=== PATIENT | male | born 1995 | race Caucasian/White ===

== ENCOUNTER 2023-04-16 08:56 | Inpatient (IN) | payer OTHER ==
[~2023-04-16] VITALS: Ht 170.1 cm; Wt 76.7 kg
[2023-04-16 09:10] VITALS: BP 140/82
[2023-04-16 09:45] LABS: BILIRUBIN Negative (Negative); BLOOD Negative (Negative); CLARITY Clear (Clear); COLOR Dark Yellow (Yellow); GLUCOSE Negative (Negative); KETONE Trace (Negative); LEUKO ESTERASE Trace (Negative); NITRITE Negative (Negative)
[2023-04-16 09:53] LABS: URINE AMPHETAMINES Negative (1000ng/ml); URINE BARBITURATES Positive (200ng/ml); URINE BENZODIAZEPINES Positive (200ng/ml); URINE CANNABINOIDS (THC) Negative (50ng/ml); URINE COCAINE Positive (300ng/ml); URINE METHADONE Positive (300ng/ml); URINE OPIATES Negative (300ng/ml); URINE PHENCYCLIDINE Negative (25ng/ml)
[2023-04-16 10:08] LABS: BASO % 0.6 % (0.0-1.0); EOS # 0.3 10*3/uL (0.0-0.4); EOS % 4.9 % (1.0-4.0); HEMATOCRIT 39.8 % (42.0-52.0); LYMPH # 2.5 10*3/uL (1.3-4.4); LYMPH % 36.2 % (27.0-41.0); MEAN CELL VOLUME 97.8 fl (80.0-94.0); MEAN CORPUSCULAR HGB 34.4 pg (27.0-31.0); MEAN CORPUSCULAR HGB CONC 35.2 g/dl (33.0-37.0); MEAN PLATELET VOLUME 10.1 fl (9.6-12.3); MONO # 0.6 10*3/uL (0.1-1.0); NEUT # 3.3 10*3/uL (2.3-7.9); PLATELET COUNT AUTOMATED 182 10*3/uL (130-400); RED BLOOD COUNT 4.07 10*6/uL (4.50-5.90); RED CELL DISTRI WIDTH 14.4 % (0-14.5); WHITE BLOOD COUNT 6.8 10*3/uL (4.8-10.8)
[2023-04-16 10:19] LABS: ACT PARTIAL THROMBO TIME 25.1 SECONDS (20.0-32.1); INTERNATIONAL NORM RATIO 0.9 (2.0-3.5)
[2023-04-16 10:29] LABS: ALKALINE PHOSPHATASE 175 U/L (46-116); BUN 9 mg/dl (9-23); CHLORIDE 108 mmol/L (98-107); ETHYL ALCOHOL 82.5 mg/dl (<3); LIPASE 26 U/L (12-53); POTASSIUM 3.8 mmol/L (3.4-5.1); SGPT/ALT 334 U/L (10-49); TOTAL PROTEIN 7.8 gm/dL (6.0-8.0)
[2023-04-16 10:33] LABS: BACTERIA TRACE
[2023-04-16] MEDS ORDERED: CHLORDIAZEPOXID25 M1 PO (11:20)
[2023-04-16] MEDS ORDERED: ATARAX,VISTARIL50 MG PO (11:20)
[2023-04-16] MEDS ORDERED: ONDANSETRON HYDR4 M1 PO (11:21)
[2023-04-16] MEDS ORDERED: LORAZEPAM2 MG PO (11:21)
[2023-04-16] MEDS ORDERED: TRAZODONE50 MG PO (11:21)
[2023-04-16] MEDS ORDERED: Methadone Hydro10 MG PO (11:29)
[2023-04-16 13:08] VITALS: BP 131/78
[2023-04-16 17:25] VITALS: BP 107/77
[2023-04-16 20:00] VITALS: BP 116/85
[2023-04-17] VITALS: BP 114/78
[2023-04-17 06:35] LABS: BASO % 0.7 % (0.0-1.0); EOS # 0.3 10*3/uL (0.0-0.4); EOS % 6.8 % (1.0-4.0); HEMATOCRIT 39.3 % (42.0-52.0); LYMPH # 2.2 10*3/uL (1.3-4.4); LYMPH % 47.7 % (27.0-41.0); MEAN CELL VOLUME 98.7 fl (80.0-94.0); MEAN CORPUSCULAR HGB 34.7 pg (27.0-31.0); MEAN CORPUSCULAR HGB CONC 35.1 g/dl (33.0-37.0); MEAN PLATELET VOLUME 10.5 fl (9.6-12.3); MONO # 0.5 10*3/uL (0.1-1.0); MONO % 9.9 % (3.0-9.0); NEUT # 1.6 10*3/uL (2.3-7.9); NEUT % 34.7 % (47.0-73.0); PLATELET COUNT AUTOMATED 189 10*3/uL (130-400); RED BLOOD COUNT 3.98 10*6/uL (4.50-5.90); RED CELL DISTRI WIDTH 14.3 % (0-14.5); WHITE BLOOD COUNT 4.5 10*3/uL (4.8-10.8)
[2023-04-17 06:49] LABS: ALKALINE PHOSPHATASE 157 U/L (46-116); BUN 8 mg/dl (9-23); CHLORIDE 107 mmol/L (98-107); POTASSIUM 3.8 mmol/L (3.4-5.1); SGPT/ALT 229 U/L (10-49); TOTAL PROTEIN 6.8 gm/dL (6.0-8.0)
[2023-04-17 08:00] VITALS: BP 98/50
[2023-04-17 12:00] VITALS: BP 109/64
[2023-04-17 15:58] VITALS: BP 111/65
[2023-04-17 20:00] VITALS: BP 106/62
[2023-04-18] VITALS: BP 105/61
[2023-04-18 08:00] VITALS: BP 98/56
[2023-04-18 08:30] LABS: HBSAG Negative (Negative); HEP B CORE AB, IGM Negative (Negative)
[2023-04-18] MEDS ORDERED: VITAMIN B-1100 M1 PO (10:38)
[2023-04-18] MEDS ORDERED: NATURE'S BLEND F1 MG PO (10:38)
[2023-04-18] MEDS ORDERED: ONDANSETRON HYDR4 M1 PO (10:38)
[2023-04-18] MEDS ORDERED: TAB-A-VITE TA400 MCG PO (10:38)
[2023-04-18] MEDS ORDERED: ATARAX,VISTARIL50 MG PO (10:38)
[2023-04-18 12:00] VITALS: BP 105/59
[2023-04-18 16:00] VITALS: BP 120/63
[2023-04-18 20:00] VITALS: BP 117/73
[2023-04-19] VITALS: BP 117/74
[2023-04-19 08:00] VITALS: BP 120/61
[2023-04-19 12:00] VITALS: BP 113/72
[2023-04-20 12:07] LABS: HEPATITIS C ANTIBODY Reactive (Non Reactive)
== END 2023-04-19 14:57 | disposition home or self-care (01) | DRG 773 ==
LOC: ED 08:56 → EDHOLD 09:46 → 4E 09:46
PROVIDERS: Emergency Medicine; Registered Nurse; ADMIT Internal Medicine; ATTEND Internal Medicine
DX: F10.239 Alcohol dependence with withdrawal, unspecified (principal); F41.9 Anxiety disorder, unspecified; R74.01 Elevation of levels of liver transaminase levels; R45.1 Restlessness and agitation; F17.210 Nicotine dependence, cigarettes, uncomplicated; F19.90 Other psychoactive substance use, unspecified, uncomplicated; F14.90 Cocaine use, unspecified, uncomplicated; F11.20 Opioid dependence, uncomplicated; K76.0 Fatty (change of) liver, not elsewhere classified; Y90.4 Blood alcohol level of 80-99 mg/100 ml; Z82.49 Family history of ischemic heart disease and other diseases of the circulatory system; Z87.898 Personal history of other specified conditions